=== PATIENT | male | born 1950 | race Caucasian/White ===

== ENCOUNTER 2017-08-03 01:20 | Emergency (ER) | payer MEDICARE, OTHER ==
[~2017-08-03] VITALS: Ht 182.9 cm; Wt 109.0 kg
[~2017-08-03 01:20] MED LIST: ARMO30TA PO; ROBA750T PO
[2017-08-03 01:24] VITALS: BP 168/96; PULSE 86; TEMP 97.6; O2SAT 95
[2017-08-03 01:40] VITALS: BP 177/95; PULSE 88; RESP 18; O2SAT 93
[2017-08-03] MEDS ORDERED: ONDANSETRON HCL 4 MG/2 ML VIAL IV PUSH ONE ×2 (01:45→02:30)
[2017-08-03] MEDS ORDERED: MORPHINE SULFATE 4 MG/ML INJ IV PUSH ONE (01:45)
[2017-08-03] MEDS: SODIUM CHLORIDE 0.9% FLUSH 10 ML FLUSH IVF PRN ×2 (01:56→02:32)
[2017-08-03 02:02] LABS: AUTOMATED NEUTROPHIL # 2.8 TH/MM3 (1.8-7.7); BASOPHIL % 0.6 % (0.0-2.0); EOSINOPHIL # 0.3 TH/MM3 (0-0.4); HEMATOCRIT 47.1 % (39.0-51.0); HEMOGLOBIN 15.5 GM/DL (13.0-17.0); LYMPH % 42.3 % (9.0-44.0); MEAN CELL VOLUME 92.5 FL (80.0-100.0); MEAN CORPUSCULAR HEMOGLOBIN 30.4 PG (27.0-34.0); MEAN CORPUSCULAR HGB CONC 32.9 % (32.0-36.0); MEAN PLATELET VOLUME 7.4 FL (7.0-11.0); MONO % 10.9 % (0.0-8.0); MONOCYTE # 0.8 TH/MM3 (0-0.9); NEUT % 41.2 % (16.0-70.0); PLATELET COUNT 230 TH/MM3 (150-450); RED BLOOD COUNT 5.09 MIL/MM3 (4.50-5.90); RED CELL DISTRIBUTION WIDTH 11.8 % (11.6-17.2); WHITE BLOOD COUNT 6.9 TH/MM3 (4.0-11.0)
[2017-08-03] MEDS ORDERED: LEVO.075 PO (02:06)
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
[2017-08-03 02:12] LABS: CALCIUM 9.1 MG/DL (8.5-10.1)
[2017-08-03 02:13] LABS: BICARBONATE 30.2 MEQ/L (21.0-32.0)
[2017-08-03 02:20] VITALS: BP 151/96; PULSE 85; RESP 16; O2SAT 93
--- NOTE | 2017-08-03 03:01 | RADRPT ---
EXAM DATE/TIME: 08/03/2017 02:07 [facility] COMPARISON: No previous studies available for comparison. INDICATIONS : Right flank pain. ORAL CONTRAST: No oral contrast ingested. RADIATION DOSE: 23.11 CTDIvol (mGy) MEDICAL HISTORY : Diabetes mellitus type 2. Hypertension. SURGICAL HISTORY : None. ENCOUNTER: Initial ACUITY: 1 day PAIN SCALE: 8/10 LOCATION: Right flank TECHNIQUE: Volumetric scanning of the abdomen and pelvis was performed. Using automated exposure control and ad justment of the mA and/or kV according to patient size, radiation dose was kept as low as reasonably achievable to obtain optimal diagnostic quality images. DICOM format image data is available electro nically for review and comparison. FINDINGS: LOWER LUNGS: The visualized lower lungs are clear. LIVER: There is diffuse decreased attenuation throughout the liver. SPLEEN: Normal size without lesion. PANCREAS: Within normal limits. KIDNEYS: There is a 1 cm nonobstructing right renal stone seen in the posterior superior collecting system. Th ere is a 5 mm stone in the right renal pelvis and a 4 mm stone in the proximal right ureter. There is mild dilatation of the right collecting system. There is a tiny punctate 1 mm nonobstructing stones in the inferior left collecting system. There is a 2 cm exophytic mass off the posterior inferior rig ht kidney likely related to a cyst. ADRENAL GLANDS: Within normal limits. VASCULAR: There is no aortic aneurysm. BOWEL/MESENTERY: There are scattered colonic diverticula being most numerous in the sigmoid colon region. ABDOMINAL WALL: Within normal limits. RETROPERITONEUM: There is no lymphadenopathy. BLADDER: No wall thickening or mass. REPRODUCTIVE: Prostatic calcifications are present. INGUINAL: There is no lymphadenopathy or hernia. MUSCULOSKELETAL: There is degenerative change in the lumbar spine. CONCLUSION: 1. 3 stones are seen on the right side. This includes a 4 mm stone in the proximal right ureter causi ng mild dilatation of the right collecting system. The other stones are nonobstructing. 2. Tiny nonobstructing left renal stone. 3. 2 cm suspected exophytic cyst at the inferior right kidney. 4. Prominent hepatic steatosis. 5. Sigmoid colon diverticula. Theo Oleary MD on August 03, 2017 at 2:53 Board Certified Radiologist. This report was verified electronically.
[2017-08-03] MEDS ORDERED: ZOFR4TAB3 SL ×2 (03:08→03:25)
[2017-08-03] MEDS ORDERED: PERC5TAB12 PO (03:08)
[2017-08-03] MEDS ORDERED: TAMS5CAP PO (03:08)
[2017-08-03] MEDS ORDERED: TAMSULOSIN HCL 0.4 MG CAP PO ONE (03:15)
[2017-08-03] MEDS ORDERED: SODIUM CHLORID 0.9% 500 ML INJ 500 ML IV ONE (03:15)
[2017-08-03] MEDS ORDERED: KETOROLAC TROMETHAMINE 30 MG/ML (IVP) VIAL IV PUSH ONE (03:15)
[2017-08-03] MEDS ORDERED: PROM25TA10 PO (03:23)
[2017-08-03] MEDS ORDERED: PROMETHAZINE INJ 25 MG/ML VIAL IM ONE (03:30)
[2017-08-03 04:08] LABS: BILIRUBIN, URINE NEG (NEG); BLOOD, URINE LARGE (NEG); GLUCOSE,URINE NEG (NEG); KETONE, URINE NEG (NEG); NITRITE,URINE NEG (NEG); PH, URINE 5.5 (5.0-8.5); URINE LEUKOCYTE ESTERASE NEG (NEG)
[2017-08-03 04:16] LABS: URINE COLOR YELLOW (YELLW/STRAW)
[2017-08-03 04:17] LABS: MUCUS URINE OCC /lpf (OCC); SQUAMOUS EPITHELIAL CELL URINE 0-5 /hpf (0-5)
[2017-08-03 04:59] VITALS: BP 142/86
== END 2017-08-03 05:01 | disposition home or self-care (01) ==
LOC: PHED 01:20
DX: N13.2 Hydronephrosis with renal and ureteral calculous obstruction (principal); R42 Dizziness and giddiness; R11.2 Nausea with vomiting, unspecified; I10 Essential (primary) hypertension; E11.9 Type 2 diabetes mellitus without complications; E03.9 Hypothyroidism, unspecified; F32.9 Major depressive disorder, single episode, unspecified; Z87.442 Personal history of urinary calculi; Z87.39 Personal history of other diseases of the musculoskeletal system and connective tissue; Z86.79 Personal history of other diseases of the circulatory system; Z87.19 Personal history of other diseases of the digestive system
CPT/HCPCS: 74176; 80048; 81001; 85025; 96361; 96372; 96374; 96375; 96376; 99284; J1885; J2270; J2405; J2550; J7040

== ENCOUNTER 2017-12-08 03:45 | Emergency (ER) | payer OTHER ==
[~2017-12-08] VITALS: Ht 182.9 cm; Wt 109.0 kg
[~2017-12-08 03:45] MED LIST changes: -ARMO30TA PO; +LEVO.075 PO; +PERC5TAB12 PO; +PROM25TA10 PO; -ROBA750T PO; +TAMS5CAP PO; +ZOFR4TAB3 SL
[2017-12-08 03:48] VITALS: BP 197/105; PULSE 80; RESP 18; TEMP 98.7; O2SAT 96
[2017-12-08] MEDS ORDERED: TAMS5CAP PO (03:59)
[2017-12-08] MEDS ORDERED: SODIUM CHLOR 0.9% 1000 ML INJ 1,000 ML IV SCH (04:03)
[2017-12-08] MEDS ORDERED: METOCLOPRAMIDE HCL 10 MG/2 ML VIAL IV PUSH ONE (04:15)
[2017-12-08] MEDS ORDERED: KETOROLAC TROMETHAMINE 30 MG/ML (IVP) VIAL IVP ONE (04:15)
[2017-12-08] MEDS ORDERED: MORPHINE SULFATE 4 MG/ML INJ IV PUSH ONE (04:15)
[2017-12-08] MEDS ORDERED: SODIUM CHLORIDE 0.9% FLUSH 10 ML FLUSH IV FLUSH PRN (04:15)
[2017-12-08 04:17] LABS: BILIRUBIN, URINE NEG (NEG); BLOOD, URINE TRACE (NEG); GLUCOSE,URINE NEG (NEG); KETONE, URINE NEG (NEG); NITRITE,URINE NEG (NEG); PH, URINE 5.5 (5.0-8.5); URINE COLOR YELLOW (YELLW/STRAW); URINE LEUKOCYTE ESTERASE NEG (NEG)
[2017-12-08 04:22] LABS: RBC, URINE 0-3 /hpf (0-3); SQUAMOUS EPITHELIAL CELL URINE 0-5 /hpf (0-5); WBC, URINE 0-2 /hpf (0-5)
[2017-12-08 04:24] VITALS: BP 177/95; PULSE 88; RESP 20; O2SAT 95
[2017-12-08 04:26] LABS: AUTOMATED NEUTROPHIL # 5.7 TH/MM3 (1.8-7.7); BASOPHIL # 0.1 TH/MM3 (0-0.2); BASOPHIL % 0.9 % (0.0-2.0); EOSINOPHIL # 0.3 TH/MM3 (0-0.4); EOSINOPHIL % 3.6 % (0.0-4.0); HEMATOCRIT 44.2 % (39.0-51.0); HEMOGLOBIN 15.8 GM/DL (13.0-17.0); LYMPH % 17.9 % (9.0-44.0); LYMPHOCYTE # 1.5 TH/MM3 (1.0-4.8); MEAN CELL VOLUME 88.6 FL (80.0-100.0); MEAN CORPUSCULAR HEMOGLOBIN 31.6 PG (27.0-34.0); MEAN CORPUSCULAR HGB CONC 35.6 % (32.0-36.0); MEAN PLATELET VOLUME 7.9 FL (7.0-11.0); MONO % 7.7 % (0.0-8.0); MONOCYTE # 0.6 TH/MM3 (0-0.9); NEUT % 69.9 % (16.0-70.0); PLATELET COUNT 186 TH/MM3 (150-450); RED BLOOD COUNT 4.99 MIL/MM3 (4.50-5.90); RED CELL DISTRIBUTION WIDTH 11.8 % (11.6-17.2); WHITE BLOOD COUNT 8.2 TH/MM3 (4.0-11.0)
[2017-12-08 04:29] LABS: BICARBONATE 30.3 MEQ/L (21.0-32.0)
--- NOTE | 2017-12-08 04:31 | PD ---
HPI Chief Complaint: Flank/Kidney Pain Time Seen by Provider: 03:57 Travel History International Travel<30 days: No Contact w/Intl Traveler<30days: No Traveled to known affect area: No History of Present Illness HPI The patient is a 67-year-old male who presents to the emergency department for right flank pain. The patient developed right flank pain yesterday, was seen by his primary physician at the [place] [facility]. The patient had a x-ray of the abdomen performed and was told he had an 8 mm kidney stone within the kidney. However, he was told he had no stones within the ureter. The patient developed increasing pain this evening that was rating from the right inguinal aspect to the right flank and right mid back. He has had similar pain in the past secondary to nephrolithiasis. He denies any previous stents or lithotripsies for his renal stones, but has passed kidney stones in the past. He denies any dysuria, frequency, urgency, or hematuria. He denies any current nausea or vomiting associated with the pain, however, did take his Percocet at home without any alleviation of his symptoms. He also took the Flomax he was prescribed yesterday at the [place] [facility]. PFSH Past Medical History Arthritis: Yes Blood Disorders: No Depression: Yes Cancer: No Cardiovascular Problems: Yes Diabetes: Yes Patient Takes Glucophage: No Diminished Hearing: No Endocrine: Yes Gastrointestinal Disorders: Yes Genitourinary: Yes Hepatitis: Yes (C - CURED) Hypertension: Yes Kidney Stones: Yes Musculoskeletal: Yes Neurologic: No Psychiatric: Yes Reproductive: No Respiratory: No Immunizations Current: Yes Thyroid Disease: Yes (HYPO) Past Surgical History Pacemaker: No Tonsillectomy: Yes Other Surgery: Yes (DEVIATED SEPTUM) Social History Alcohol Use: Yes (SOCIAL) Tobacco Use: No Substance Use: No Allergies-Medications (Allergen,Severity, Reaction): Coded Allergies: No Known Allergies (Verified Adverse Reaction, Unknown, 12/08/17) Reported Meds & Prescriptions Reported Meds & Active Scripts Active Percocet (Oxycodone-Acetaminophen) 5-325 mg Tab 1 Tab PO Q6H PRN Reported Flomax (Tamsulosin HCl) 0.4 Mg Cap 0.4 Mg PO HS Synthroid (Levothyroxine Sodium) 75 Mcg Tab 75 Mcg PO DAILY Review of Systems Except as stated in HPI: all other systems reviewed are Neg General / Constitutional: No: Fever, Chills Cardiovascular: No: Chest Pain or Discomfort Respiratory: No: Shortness of Breath Gastrointestinal: No: Nausea, Vomiting, Abdominal Pain Genitourinary: Positive: Flank Pain, No: Urgency, Frequency, Dysuria, Hematuria Skin: No Rash Physical Exam Narrative GENERAL: Awake, alert, pleasant 67-year-old male who appears his stated age and is in no acute respiratory distress. He does appear in mild discomfort. SKIN: Focused skin assessment warm/dry. HEAD: Atraumatic. Normocephalic. EYES: No injection or drainage. NECK: Trachea midline. No JVD. CARDIOVASCULAR: Regular rate and rhythm. No murmur appreciated. RESPIRATORY: No accessory muscle use. Clear to auscultation. Breath sounds equal bilaterally. GASTROINTESTINAL: Abdomen soft, non-tender, nondistended. No rebound tenderness , guarding, rigidity. Back: No CVA tenderness. MUSCULOSKELETAL: No obvious deformities. No clubbing. No cyanosis. No edema. NEUROLOGICAL: Awake and alert. No obvious cranial nerve deficits. Motor grossly within normal limits. Normal speech. PSYCHIATRIC: Appropriate mood and affect; insight and judgment normal. Data Data Last Documented VS Vital Signs Date Time Temp Pulse Resp B/P (MAP) Pulse Ox O2 Delivery O2 Flow Rate FiO2 12/08/17 04:24 88 20 177/95 (122) 95 Room Air 12/08/17 03:48 98.7 Orders Orders Basic Metabolic Panel (Bmp) (12/08/17 04:03) Complete Blood Count With Diff (12/08/17 04:03) Urinalysis - C+S If Indicated (12/08/17 04:03) Ct Abd/Pel W/O Iv Contrast (12/08/17 04:03) Iv Access Insert/Monitor (12/08/17 04:03) Ecg Monitoring (12/08/17 04:03) Oximetry (12/08/17 04:03) Morphine Inj (Morphine Inj) (12/08/17 04:15) Sodium Chlor 0.9% 1000 Ml Inj (Ns 1000 M (12/08/17 04:03) Sodium Chloride 0.9% Flush (Ns Flush) (12/08/17 04:15) Ketorolac Inj (Toradol Inj) (12/08/17 04:15) Metoclopramide Inj (Reglan Inj) (12/08/17 04:15) Labs Laboratory Tests Test 12/08/17 04:00 White Blood Count 8.2 TH/MM3 Red Blood Count 4.99 MIL/MM3 Hemoglobin 15.8 GM/DL Hematocrit 44.2 % Mean Corpuscular Volume 88.6 FL Mean Corpuscular Hemoglobin 31.6 PG Mean Corpuscular Hemoglobin Concent 35.6 % Red Cell Distribution Width 11.8 % Platelet Count 186 TH/MM3 Mean Platelet Volume 7.9 FL Neutrophils (%) (Auto) 69.9 % Lymphocytes (%) (Auto) 17.9 % Monocytes (%) (Auto) 7.7 % Eosinophils (%) (Auto) 3.6 % Basophils (%) (Auto) 0.9 % Neutrophils # (Auto) 5.7 TH/MM3 Lymphocytes # (Auto) 1.5 TH/MM3 Monocytes # (Auto) 0.6 TH/MM3 Eosinophils # (Auto) 0.3 TH/MM3 Basophils # (Auto) 0.1 TH/MM3 CBC Comment DIFF FINAL Differential Comment Urine Color YELLOW Urine Turbidity CLEAR Urine pH 5.5 Urine Specific [place] 1.025 Urine Protein NEG mg/dL Urine Glucose (UA) NEG mg/dL Urine Ketones NEG mg/dL Urine Occult Blood TRACE Urine Nitrite NEG Urine Bilirubin NEG Urine Urobilinogen 0.2 MG/DL Urine Leukocyte Esterase NEG Urine RBC 0-3 /hpf Urine WBC 0-2 /hpf Urine Squamous Epithelial Cells 0-5 /hpf Urine Bacteria NONE /hpf Microscopic Urinalysis Comment CULT NOT INDICATED Blood Urea Nitrogen 21 MG/DL Creatinine 1.40 MG/DL Random Glucose 204 MG/DL Calcium Level 9.0 MG/DL Sodium Level 134 MEQ/L Potassium Level 4.2 MEQ/L Chloride Level 100 MEQ/L Carbon Dioxide Level 30.3 MEQ/L Anion Gap 4 MEQ/L Estimat Glomerular Filtration Rate 51 ML/MIN [facility] Medical Decision Making Medical Screen Exam Complete: Yes Emergency Medical Condition: Yes Medical Record Reviewed: Yes Interpretation(s) Laboratory Tests Test 12/08/17 04:00 White Blood Count 8.2 TH/MM3 Red Blood Count 4.99 MIL/MM3 Hemoglobin 15.8 GM/DL Hematocrit 44.2 % Mean Corpuscular Volume 88.6 FL Mean Corpuscular Hemoglobin 31.6 PG Mean Corpuscular Hemoglobin Concent 35.6 % Red Cell Distribution Width 11.8 % Platelet Count 186 TH/MM3 Mean Platelet Volume 7.9 FL Neutrophils (%) (Auto) 69.9 % Lymphocytes (%) (Auto) 17.9 % Monocytes (%) (Auto) 7.7 % Eosinophils (%) (Auto) 3.6 % Basophils (%) (Auto) 0.9 % Neutrophils # (Auto) 5.7 TH/MM3 Lymphocytes # (Auto) 1.5 TH/MM3 Monocytes # (Auto) 0.6 TH/MM3 Eosinophils # (Auto) 0.3 TH/MM3 Basophils # (Auto) 0.1 TH/MM3 CBC Comment DIFF FINAL Differential Comment Urine Color YELLOW Urine Turbidity CLEAR Urine pH 5.5 Urine Specific [place] 1.025 Urine Protein NEG mg/dL Urine Glucose (UA) NEG mg/dL Urine Ketones NEG mg/dL Urine Occult Blood TRACE Urine Nitrite NEG Urine Bilirubin NEG Urine Urobilinogen 0.2 MG/DL Urine Leukocyte Esterase NEG Urine RBC 0-3 /hpf Urine WBC 0-2 /hpf Urine Squamous Epithelial Cells 0-5 /hpf Urine Bacteria NONE /hpf Microscopic Urinalysis Comment CULT NOT INDICATED Blood Urea Nitrogen 21 MG/DL Creatinine 1.40 MG/DL Random Glucose 204 MG/DL Calcium Level 9.0 MG/DL Sodium Level 134 MEQ/L Potassium Level 4.2 MEQ/L Chloride Level 100 MEQ/L Carbon Dioxide Level 30.3 MEQ/L Anion Gap 4 MEQ/L Estimat Glomerular Filtration Rate 51 ML/MIN CT of the abdomen and pelvis reveals proximal right renal calculus with moderate right hydronephrosis. Renal stone measures 4 mm in diameter. Remaining 1 cm right renal calculus. Moderate to severe hepatic steatosis. Mild diverticulosis. Differential Diagnosis Differential diagnosis includes nephrolithiasis, pyelonephritis, hydronephrosis , appendicitis, testicular torsion, shingles, back pain with radiculopathy. Narrative Course IV was established, labs are drawn and sent, the patient was placed on cardiac telemetry monitoring and continuous pulse oximetry monitoring. The patient was administered Toradol, morphine, Reglan, and IV fluids. Noncontrast CT of the abdomen and pelvis was ordered to evaluate for nephrolithiasis. UA is unremarkable. Creatinine is mildly elevated at 1.4. CBC is unremarkable. CT the abdomen and pelvis reveals a 4 mm stone in the proximal right ureter with mild hydronephrosis. The patient was reevaluated at 4:56 AM. The patient's pain has significantly improved. The patient states he does not take ibuprofen because it elevates his blood pressure. He already has Percocet and Flomax, is requesting Phenergan. Therefore, I did prescribe the patient Phenergan as needed for nausea when he takes the pain medications. He is advised to follow- up with the [place] [facility] for referral to urology. Return if symptoms worsen or progress. Diagnosis Primary Impression: Nephrolithiasis Patient Instructions: General Instructions Med/Other Pt SpecificInfo: Prescription(s) given Scripts Promethazine (Phenergan) 25 Mg Tablet 25 MG PO Q6H Y for NAUSEA OR VOMITING, #10 TAB 0 Refills Prov: Kiko Arnett MD 12/08/17 Disposition: DISCHARGE HOME Condition: Stable Kiko Arnett MD December 08, 2017 04:31
[2017-12-08 04:32] LABS: CREATININE 1.4 MG/DL (0.60-1.30)
--- NOTE | 2017-12-08 04:48 | RADRPT ---
EXAM DATE: 12/08/2017 4:40 AM EDT AGE/SEX: 67 years / Male INDICATIONS: Right flank pain. History of known renal calculi and prior proximal right ureteral calc ulus. CLINICAL DATA: This is the patient's initial encounter. Patient reports that signs and symptoms have been present for 1 day and indicates a pain score of 9/10. MEDICAL/SURGICAL HISTORY: Hypertension. Hepatitis C. None. RADIATION DOSE: 21.93 CTDI (mGy) COMPARISON: [facility], CT ABDOMEN & PELVIS W/O CONTRAST, 08/03/2017. . TECHNIQUE: Multiple contiguous axial images were obtained through the abdomen. Images were obtained using multiple row detector helical technique. Using dose reduction techniques, radiation dose was ke pt as low as reasonably achievable to obtain optimal diagnostic quality images. FINDINGS: Lower Lungs: The visualized lower lungs are clear. Liver: The liver has a homogeneous density without space-occupying lesion. There is no dilation of th e biliary tree. Moderate to severe hepatic steatosis is again noted. The gallbladder remains unremark able. Spleen: Homogeneous density without enlargement. Pancreas: Unremarkable without mass or calcification. Kidneys: The left kidney remains unremarkable with no renal calculi or obstruction. The right kidney is mildly prominent. One of the 2 previously noted renal calculi has passed into the proximal right u reter with moderate hydronephrosis. This lies at the level of the iliac crests and measures approxima tely 4 mm in diameter. The more distal right ureter and left ureter are unremarkable. There is a frank ining 1 cm right renal calculus. Adrenal Glands: Unremarkable. Aorta: The aorta and proximal iliac vessels are grossly unremarkable without aneurysmal dilation. Bowel/Mesentery: Multiple diverticuli are present. There is a normal appendix. The bowel loops are gr ossly unremarkable. The cecum and sigmoid colon have a normal configuration. Abdominal Wall: Intact. Retroperitoneum: No evidence of adenopathy in the retrocrural, para-aortic, or deep pelvic regions. Bladder: Contours are smooth. Reproductive Organs: No abnormal masses or calcifications seen. Inguinal: The inguinal region is unremarkable without evidence of adenopathy. Bony Structures: Unremarkable. CONCLUSION: 1. Proximal right renal calculus with moderate right hydronephrosis. 2. Remaining 1 cm right renal calculus. 3. Moderate to severe hepatic steatosis. 4. Mild diverticulosis. Electronically signed by: Ian Jade MD 12/08/2017 4:47 AM EDT
[2017-12-08] MEDS ORDERED: PROM25TA10 PO (05:01)
[2017-12-08 05:06] VITALS: BP 180/90
== END 2017-12-08 05:20 | disposition home or self-care (01) ==
LOC: PHED 03:45
DX: N13.2 Hydronephrosis with renal and ureteral calculous obstruction (principal); K76.0 Fatty (change of) liver, not elsewhere classified; I10 Essential (primary) hypertension; E03.9 Hypothyroidism, unspecified; E11.9 Type 2 diabetes mellitus without complications; F32.9 Major depressive disorder, single episode, unspecified; Z87.442 Personal history of urinary calculi; Z86.19 Personal history of other infectious and parasitic diseases; Z79.899 Other long term (current) drug therapy
CPT/HCPCS: 74176; 80048; 81001; 85025; 96361; 96374; 96375; 99284; J1885; J2270; J2765; J7030